=== PATIENT | male | born 1975 | race Caucasian/White ===

== ENCOUNTER 2016-10-31 03:30 | Emergency (ER) | payer OTHER ==
[~2016-10-31] VITALS: Ht 165.1 cm; Wt 77.3 kg
[~2016-10-31 03:30] MED LIST: CALC-714 PO; CHOL500050 PO; IBUP200C PO; LACT1CAP65 PO; MULT-36 PO; OMEG1CAP5 PO
[2016-10-31 03:33] VITALS: BP 135/80; PULSE 106; RESP 16; O2SAT 98
--- NOTE | 2016-10-31 03:47 | ED.REPORT ---
HPI-Headache Date of Service Oct 31, 2016 ED Provider: Maximino Simental MD A 41 year old male with a history of sciatica and neck pain presents to the ED complaining of a headache. This is accompanied by neck stiffness, nausea, vomiting, productive cough with yellow and green sputum, and subjective fever. The pt was seen by his PCP previously and diagnosed with influenza B. He was instructed to come to the ED if his headache and neck stiffness did not improve to be evaluated for meningitis. Nursing Notes Stated Complaint: HEADACHE Chief Complaint: Headache Nursing Notes Reviewed: Yes Allergies: Coded Allergies: Penicillins (Verified Allergy, Unknown, 09/13/14) Scheduled Calcium Carb/Magnesium Cmb #10 (Amaury-Mag Tablet Chewable) 1 Each Tab.chew 1 EACH PO DAILY Cholecalciferol (Vitamin D3) (Vitamin D3) 50,000 Unit Capsule 50,000 UNIT PO WKLY Lactobacillus Acidophilus (Probiotic) 1 Each Capsule 1 EACH PO DAILY Multivitamin (Daily Multiple Vitamin) 1 Each Tablet 1 EACH PO DAILY [place]-3 Fatty Acids/Fish Oil (Fish Oil 1,000 mg Capsule) 1 Each Capsule 1 EACH PO BIDWM Scheduled PRN Ibuprofen (Ibuprofen) 200 Mg Capsule 200 MG PO QID PRN PRN For Pain Ibuprofen (Ibuprofen) 600 Mg Tablet 600 MG PO QID PRN PRN For Pain Ondansetron ODT (Ondansetron ODT) 8 Mg Tab.rapdis 8 MG PO QID PRN PRN For Nausea Promethazine HCl (Phenergan) 25 Mg Supp.rect 25 MG RC TID PRN PRN For Nausea General Time Seen by MD: 03:47 Chief Complaint Headache Hx Obtained From: Patient Arrived By: Walk-in Sudden in Onset?: No Symptom Duration: Since onset Recent Healthcare: No recent hospitalization, Recent doctor visit Similar Sx Previous: No Past Medical History Past Medical History sciatica neck pain Past Surgical History none reported Smoking History Former Smoker Social History Other Social History: Smokeless tobacco Ambulatory Status Independent Review of Systems Review of Systems Note: neck stiffness Constitutional: Reports: Fever GI: Reports: Nausea, Vomiting, Denies: Abdominal pain Musculoskeletal: Denies: Back pain Skin: Denies Rash Neurologic: Reports: Headache Complete sys rev & neg: except as marked. Respiratory: Reports: Prod cough, green, Prod cough, yellow Physical Exam Initial Vital Signs Vital Signs (First) Date Time Temp Pulse Resp B/P Pulse Ox O2 Delivery O2 Flow Rate FiO2 10/31/16 03:33 36.8 106 16 135/80 98 Room Air Initial VS: Reviewed General/Constitutional: Awake, Alert, No acute distress Head / Eyes: Atraumatic, Normocephalic, PERRL, EOMI photophobic Neck: Atraumatic, Full range of motion Neurologic: Oriented X3, Speech NL, No motor deficits, No sensory deficits moving all extremities ENT: Atraumatic, Airway patent, Mucous membranes moist Respiratory / Chest: Atraumatic, Breath sounds NL, Breath sounds = bilat, No respiratory distress Cardiovascular: Heart rate NL, Regular rhythm, Heart sounds NL Abdomen: Atraumatic, Soft, Non-tender Skin: Atraumatic, Color NL, No rash, Warm, Dry Psychiatric: Affect NL, Mood NL Back: Atraumatic, Full range of motion Upper Extremity / MS: Atraumatic, Full range of motion Lower Extremity / Pelvis / MS: Atraumatic, Full range of motion Interpretation & Diagnostics Lab Results Interpretation Result Diagram: 10/31/16 0345 10/31/16 0345 Test 10/31/16 03:45 White Blood Count 5.3th/mm3 (3.8-10.1) Red Blood Count 5.10mil/mm3 (4.40-5.80) Hemoglobin 14.9g/dL (13.8-17.2) Hematocrit 43.6% (41.0-50.0) Mean Corpuscular Volume 85.5fL (81-100) Mean Corpuscular Hemoglobin 29.2pg (27.0-35.0) Mean Corpuscular Hemoglobin Concent 34.2% (32.0-37.0) Red Cell Distribution Width 13.1% (12.3-15.4) Platelet Count 143bil/L (150-400) Neutrophils (%) (Auto) 64.3% (40-74) Lymphocytes (%) (Auto) 21.6% (14-46) Monocytes (%) (Auto) 12.4% (4-12) Eosinophils (%) (Auto) 1.3% (0-5) Basophils (%) (Auto) 0.2% (0-3) Sodium Level 139mEq/L (134-144) Potassium Level 3.7mEq/L (3.5-5.2) Chloride Level 101mEq/L (97-108) Carbon Dioxide Level 23mmol/L (18-29) Blood Urea Nitrogen 11mg/dL (6-20) Creatinine 0.82mg/dL (0.76-1.27) Estimat Glomerular Filtration Rate 111mL/min (>59) Glucose Level 110mg/dL (60-99) Calcium Level 9.2mg/dL (8.5-10.1) C-Reactive Protein 3.4mg/dL (0.0-0.5) Hold Rodgers Top Tube Received (Received) X-Ray Chest Interpretation Chest Xray Interpretation: no acute findings Interpretation / Wet Read by: Wet read ED physician Re-Eval/Medical Decision Med Decision/Clinical Course 41-year-old documented flu B presents with headache dehydration subjective fever but actually not febrile here. His neck is not in fact stiff, and his exam is unremarkable. He is dry. This was remedied with IV fluids and a headache cocktail. He feels much better at this point and has no more headache. No indication for LP at this time. Discharged in stable condition. Source of Hx: Old records Re-Evaluation/Progress : Time of Eval: 06:00 )( Patient Status: Condition improved Re-Evaluation/Progress Note: Pt rechecked, whose headache has resolved. The plan for discharge is discussed. The pt understands and agrees with the plan. All questions are addressed at this time. Counseled Regarding: Diagnosis, Lab results, Need for follow-up, When/why to return to ED Discharge & Departure Impression: Primary Impression: Headache Additional Impressions: Influenza B Dehydration Disposition: Home Discharge Condition All VS Reviewed: Yes Condition: Stable Referrals: Sayda Jaimes (PCP) Lali Attestation Portions of this note were transcribed by Courtney Carter. I, Dr. Simental personally performed the history, physical exam and medical decision-making; I reviewed and confirmed the accuracy of the information in the transcribed note. Signed by: Lali Parker, 10/31/2016 and 0405. copies to: Sayda Jaimes Christopher W MD Oct 31, 2016 03:47 COURTNEY CARTER Oct 31, 2016 03:56
[2016-10-31] MEDS ORDERED: Ondansetron 2 mg/mL 2 mL Inj ONE ×2 (03:50→03:55)
[2016-10-31] MEDS ORDERED: 0.9% Sodium Chloride 1,000 ML IV SCH (03:55)
[2016-10-31] MEDS ORDERED: Haloperidol 5 mg/mL Inj IVPUSH ONE (03:55)
[2016-10-31] MEDS ORDERED: Ondansetron 2 mg/mL 2 mL Inj IVPUSH ONE (03:55)
[2016-10-31] MEDS ORDERED: Dexamethasone 10 mg/mL Inj IVPUSH ONE (03:55)
[2016-10-31 04:00] LABS: BASOPHILS % (AUTO) 0.2 % (0-3); EOSINOPHILS % (AUTO) 1.3 % (0-5); MONOCYTES % (AUTO) 12.4 % (4-12); Mean Corpuscular Hemoglobin 29.2 pg (27.0-35.0); Mean Corpuscular Volume 85.5 fL (81-100); NEUTROPHILS % (AUTO) 64.3 % (40-74); Platelet Count 143 bil/L (150-400)
[2016-10-31] MEDS ORDERED: IBUP-1827 PO (06:10)
[2016-10-31] MEDS ORDERED: ONDA8TAB10 PO (06:10)
[2016-10-31] MEDS ORDERED: PROM25SU46 RC ×2 (06:10→06:15)
[2016-10-31 06:19] VITALS: BP 131/67; PULSE 84; RESP 16; O2SAT 95
--- NOTE | 2016-10-31 09:17 | DRSVH ---
PROCEDURE: X-RAY CHEST ONE VIEW ([id number]) INDICATIONS: cough TECHNIQUE: One view of the chest was acquired. COMPARISON: None. FINDINGS: Surgical changes and devices: None. Lungs and pleura: No pleural effusions or pneumothorax. Lungs are clear. Mediastinum: Mediastinal contours appear normal. Heart size is normal. Bones and chest wall: No suspicious bony lesions. Overlying soft tissues appear unremarkable. IMPRESSION: No acute cardiopulmonary disease process. Dictated by: Malu Lynch MD, PhD on 10/31/2016 at 9:15 Approved by: Malu Lynch MD, PhD on 10/31/2016 at 9:15
== END 2016-10-31 06:19 | disposition home or self-care (01) ==
LOC: SED 03:38
DX: R51 Headache (principal); J10.1 Influenza due to other identified influenza virus with other respiratory manifestations; E86.0 Dehydration; M43.6 Torticollis; R11.2 Nausea with vomiting, unspecified; Z87.891 Personal history of nicotine dependence; Z88.0 Allergy status to penicillin
CPT/HCPCS: 36415; 71010; 80048; 85025; 86140; 96361; 96374; 96375; 99285; J1100; J1200; J1630; J1885; J2405; J7030